=== PATIENT | female | born 1960 | race Two or more races ===

== ENCOUNTER 2019-07-08 08:22 | Emergency (ER) | payer SELFPAY ==
[~2019-07-08] VITALS: Ht 154.9 cm; Wt 72.7 kg
[2019-07-08 08:25] VITALS: Ht 154.9 cm; Wt 72.7 kg
[2019-07-08] MEDS ORDERED: CELEBREX 100 M100 MG PO (08:50)
[2019-07-08 09:42] VITALS: BP 181/59
== END 2019-07-08 09:43 | disposition home or self-care (01) ==
LOC: D.ER 08:22
DX: S39.012A Strain of muscle, fascia and tendon of lower back, initial encounter (principal); W18.2XXA Fall in (into) shower or empty bathtub, initial encounter; Y93.E1 Activity, personal bathing and showering; Y92.012 Bathroom of single-family (private) house as the place of occurrence of the external cause; T14.8XXA Other injury of unspecified body region, initial encounter